=== PATIENT | male | born 1960 | race Caucasian/White ===

== ENCOUNTER 2016-10-11 11:46 | Inpatient (IN) | payer MEDICARE, BC, OTHER ==
--- NOTE | ~2016-10-11 | HP ---
Unit #: [id number] #: [id number] Patient: ELENA JOY [id number] [place] [address] [id number] MR#: [id number] NAME: ELENA JOY. ROOM: P106 Age: 56 Sex: M Admission Date: 10/11/2016 : 1960 Attending Physician: Gil Miles M.D. Admitting Physician: Gil Miles M.D. Primary Care Physician: Mayda Doctor Not In System HISTORY AND PHYSICAL HISTORY OF PRESENT ILLNESS Elena is a 56 year old admitted to [address] [place] [address] reporting auditory hallucinations telling him to kill himself. PAST MEDICAL HISTORY 1. Morbid obesity. 2. Diabetes mellitus. 3. Hypothyroidism. 4. Hyperlipidemia. PAST SURGICAL HISTORY Left leg, left shoulder. ALLERGIES No known drug allergies. SOCIAL HISTORY He denies cigarettes, alcohol and illicit drug use. FAMILY HISTORY Medically noncontributory. REVIEW OF SYSTEMS CONSTITUTIONAL: No fever or chills. HEENT: Denies any sore throat, ear pain or runny nose. CARDIOVASCULAR: Denies chest pain, irregular heart rhythm or palpitations. CHEST: Denies shortness of breath or cough. No hemoptysis. GASTROINTESTINAL: Denies nausea, vomiting, diarrhea or chronic constipation. ENDOCRINE: Denies history of increased thirst or urination. No recent significant weight loss or gain. GENITOURINARY: Denies dysuria, frequency, or hematuria. SKIN: Denies any rashes. HEMATOLOGIC: Denies history of increased bleeding or bruising. MUSCULOSKELETAL: Denies any hot, swollen joints. No generalized muscle pain. NEUROLOGIC: Denies problems with vision or speech. No frequent, severe headaches. No numbness, tingling or weakness in any extremities. Denies loss of bladder or bowel control. CURRENT MEDICATIONS 1. Glucophage 500 mg q.a.m. 2. Synthroid 0.1 mg daily. Unit #: [id number] #: [id number] Patient: ELENA JOY 3. Zyban SR 150 mg daily. 4. Zocor 20 mg q.h.s. 5. Desyrel 50 mg q.h.s. 6. Vistaril 25 mg q.h.s. 7. Risperdal 3 mg b.i.d. 8. Milk of Magnesia p.r.n. 9. Maalox p.r.n. 10. Tylenol p.r.n. PHYSICAL EXAMINATION GENERAL: Alert, well-nourished, in no apparent distress. VITAL SIGNS: Blood pressure 118/78, heart rate 100, respirations 16, temperature 98.6. WEIGHT: 204. HEIGHT: 5 feet 9 inches. SKIN: Warm and dry without rash or lesion. HEENT: Normocephalic. TMs not viewed. Oral and nasal passages clear. Conjunctivae clear. PERRLA. EOMs intact. NECK: Supple without lymphadenopathy or thyromegaly. HEART: Regular rate and rhythm without murmur. LUNGS: Clear. ABDOMEN: Soft, nontender. : Not done. EXTREMITIES: No evidence of cyanosis, clubbing or edema. Moves all without focal deficit. NEUROLOGICAL: Unable to complete extended examination. He does move all extremities. Hand cager operator is equal. Gait is normal. IMPRESSION Psychiatric admission. RECOMMENDATIONS PSYCHIATRIC: Per psychiatrist. MEDICAL: See no contraindication to participate in facility's activities. MEDICAL PROGNOSIS Good. MEDICAL CONDITION Stable. Dictated by... Екатерина Field P.A.-C. for Lupe Echeverria/tl TD: 10/11/2016 20:20 JOB #: [id number] Unit #: [id number] #: [id number] Patient: ELENA JOY HISTORY AND PHYSICAL Page 1 of 1 X Екатерина Field PA X HISTORY AND PHYSICAL
--- NOTE | ~2016-10-11 | PN ---
Unit #: [id number] #: [id number] Patient: ELENA OROSCO [id number] [facility] [address] [place] [address] [id number] I MR#: [id number] NAME: ELENA OROSCO. ROOM: P122 Age: 56 Sex: M Admission Date: 10/11/2016 : 1960 Attending Physician: Gil Miles M.D. Admitting Physician: Gil Miles M.D. Primary Care Physician: Mayda Doctor Not In System [facility] PROGRESS NOTES DATE October 15, 2016 DISCUSSION Mr. Orosco is a 56-year-old white male, with mood disorder, who was seen today and chart was reviewed and the case was discussed with the staff. He has been anxious, withdrawn, and rather seclusive to himself. Meanwhile, he has been cooperative with the treatment recommendations and he has been taking the medications. MENTAL STATUS EXAMINATION Middle-aged white male, who was casually dressed with fair personal hygiene and appears to be in no acute distress or discomfort. He was awake and alert on interaction with intact orientation. His mood is anxious with a congruent affect. His speech is slow and goal-directed. He denies any suicidal or homicidal ideations. His insight and judgment remain slightly impaired. TREATMENT PLAN 1. We will continue him on his current medications and treatment protocol, and will monitor his response to the medications, and make further adjustments as needed. 2. We will continue to followup. Dictated by... Lupe Graves/massiel TD: 10/16/2016 11:17 JOB #: [id number] Unit #: [id number] #: [id number] Patient: ELENA OROSCO PROGRESS NOTES Page 1 of 1 X Gil Miles MD PROGRESS NOTE
--- NOTE | ~2016-10-11 | PN ---
Unit #: [id number] #: [id number] Patient: ELENA OROSCO [id number] [facility] [address] [place] [address] [id number] I MR#: [id number] NAME: ELENA OROSCO. ROOM: P122 Age: 56 Sex: M Admission Date: 10/11/2016 : 1960 Attending Physician: Gil Miles M.D. Admitting Physician: Gil Miles M.D. Primary Care Physician: Mayda Doctor Not In System [facility] PROGRESS NOTES DATE OF SERVICE 10/20/2016 DISCUSSION Mr. Orosco is a 56-year-old white male who was seen today. Chart was reviewed and case was discussed with the staff. He has been anxious, withdrawn, and rather seclusive to himself. Meanwhile, he has been cooperative with the treatment recommendations and has been taking the medications and tolerating them fairly well with no reported side effects. MENTAL STATUS EXAMINATION Middle-aged white male who is casually dressed with fair personal hygiene, appears to be in no acute distress or discomfort. The patient was awake and alert on interaction with intact orientation. His mood is anxious with a congruent affect. He denies any suicidal or homicidal ideations, and also denies any auditory or visual hallucinations. His insight and judgment remain slightly impaired. TREATMENT PLAN 1. We will continue him on his current medications and treatment protocol. We will monitor his response and make further adjustments as needed. 2. We will continue to follow up. Dictated by... Gil Miles M.D. IAA/bzg TD: 10/21/2016 10:22 JOB #: [id number] Unit #: [id number] #: [id number] Patient: ELENA OROSCO [facility] PROGRESS NOTES Page 1 of 1 X Gil Miles MD PROGRESS NOTE
--- NOTE | ~2016-10-11 | DS ---
Unit #: [id number] #: [id number] Patient: ELENA OROSCO [id number] [place] [address] [id number] I MR#: [id number] NAME: ELENA OROSCO. ROOM: [facility] Age: 56 Sex: M Admission Date: 10/11/2016 : 1960 Discharge Date: 10/23/2016 Attending Physician: Gil Miles M.D. Primary Care Physician: Generic Doctor Not In System DISCHARGE SUMMARY IDENTIFYING DATA Mr. Orosco is a 56-year-old single disabled white male, who is a resident of [place], [place], and was stepped up to the inpatient unit from the intensive outpatient treatment program at [facility]. DISCHARGE DIAGNOSES Psychiatric: Chronic paranoid schizophrenia. Medical: Hypothyroidism, diabetes mellitus, dyslipidemia. Stressors: Mild psychosocial stressors. HISTORY OF PRESENT ILLNESS Please see initial psychiatric evaluation for details. PAST PSYCHIATRIC HISTORY Please see initial psychiatric evaluation for details. PAST MEDICAL HISTORY Please see initial psychiatric evaluation for details. HOSPITAL COURSE The patient was admitted to the adult psychiatric unit at [facility] and was oriented to the hospital environment. Routine p.r.n. medications were initiated, and he was started back on his home medications and medications were adjusted and he was closely monitored. He was taking the medications regularly and was tolerating them fairly well and was able to show a decent and therapeutic response. However, he was also considered to be a candidate for long-acting injectable antipsychotic due to his history of poor compliance with medication leading to persistent psychosis and after ruling out hypersensitivity to the molecule of Risperdal, Invega Sustenna was given. He was able to receive both the loading doses while on the unit; followed by which, it was decided that he will be discharged home and will continue treatment on an outpatient basis. DISCHARGE MEDICATIONS Invega Sustenna intramuscular every 30 days. DISCHARGE CONDITION Stable. PROGNOSIS Fair. Unit #: [id number] #: [id number] Patient: ELENA OROSCO Dictated by... Gil Miles M.D. IAA/modl TD: 10/24/2016 01:51 JOB #: [id number] DISCHARGE SUMMARY Page 1 of 1 X Gil Miles MD DISCHARGE SUMMARY
--- NOTE | ~2016-10-11 | PN ---
Unit #: [id number] #: [id number] Patient: ELENA OROSCO [id number] [facility] [address] [place] [address] [id number] I MR#: [id number] NAME: ELENA OROSCO. ROOM: P122 Age: 56 Sex: M Admission Date: 10/11/2016 : 1960 Attending Physician: Gil Miles M.D. Admitting Physician: Gil Miles M.D. Primary Care Physician: Mayda Doctor Not In System [facility] PROGRESS NOTES DATE 10/16/2016 DISCUSSION Mr. Orosco is a 56-year-old white male with mood disorder and psychosis who was ____ today and case was discussed with the staff. He has been anxious, withdrawn, seclusive to himself with persistent paranoia and hallucinations. Meanwhile, he has been taking medications and tolerating them fairly well with no reported side effects. MENTAL STATUS EXAMINATION Middle-aged white male who was casually dressed with fair personal hygiene and appears to be in no acute distress or discomfort. He was awake and alert with impaired attention and concentration. His mood was anxious with congruent affect. His speech is slow and restricted in content. His thought processes were disorganized with some looseness of associations and flight of ideas. His insight and judgement remains significantly impaired. TREATMENT PLAN 1. Will continue in his current medications and treatment protocol. Will monitor his response to the medications and make further adjustments as needed. 2. Will continue to follow up. Dictated by... Lupe Graves/tl TD: 10/16/2016 20:25 JOB #: [id number] Unit #: [id number] #: [id number] Patient: ELENA OROSCO [facility] PROGRESS NOTES Page 1 of 1 X Gil Miles MD PROGRESS NOTE
--- NOTE | ~2016-10-11 | PN ---
Unit #: [id number] #: [id number] Patient: ELENA OROSCO [id number] [facility] [address] [place] [address] [id number] I MR#: [id number] NAME: ELENA OROSCO. ROOM: P122 Age: 56 Sex: M Admission Date: 10/11/2016 : 1960 Attending Physician: Gil Miles M.D. Admitting Physician: Gil Miles M.D. Primary Care Physician: Mayda Doctor Not In System [facility] PROGRESS NOTES DATE October 22, 2016 DISCUSSION Mr. Orosco is a 56-year-old white male, who was seen today and chart was reviewed and the case was discussed with the staff. He has been anxious, withdrawn, but has not shown any agitation, irritability, and has been cooperative with the treatment recommendations, and he has been taking the medications and tolerating them fairly well with no reported side effects. MENTAL STATUS EXAMINATION Middle-aged white male, who was casually dressed with fair personal hygiene and appears to be in no acute distress or discomfort. He was awake and alert on interaction with intact orientation. His mood was anxious with a congruent affect. He denies any suicidal or homicidal ideations. His insight and judgment remain slightly impaired. TREATMENT PLAN 1. We will continue him on his current medications and treatment protocol, and will monitor his response, and make further adjustments as needed. 2. We will continue to followup. Dictated by... Lupe Graves/massiel TD: 10/23/2016 08:27 JOB #: [id number] Unit #: [id number] #: [id number] Patient: ELENA OROSCO [facility] PROGRESS NOTES Page 1 of 1 X Gil Miles MD X PROGRESS NOTE
--- NOTE | ~2016-10-11 | PN ---
Unit #: [id number] #: [id number] Patient: ELENA OROSCO [id number] [facility] [address] [place] [address] [id number] I MR#: [id number] NAME: ELENA OROSCO. ROOM: P122 Age: 56 Sex: M Admission Date: 10/11/2016 : 1960 Attending Physician: Gil Miles M.D. Admitting Physician: Gil Miles M.D. Primary Care Physician: Mayda Doctor Not In System [facility] PROGRESS NOTES DATE October 13, 2016 DISCUSSION Mr. Orosco is a 56-year-old white male, who was seen today and chart was reviewed and the case was discussed with the staff. He has been anxious, withdrawn, and reports that since he has been here in the hospital he has been feeling worse; however, he has been taking the medications and tolerating them fairly well with no reported side effects. MENTAL STATUS EXAMINATION Middle-aged white male, who was casually dressed with fair personal hygiene and appears to be in no acute distress or discomfort. He was awake and alert with intact orientation. His mood is anxious with a congruent affect. He denies any suicidal or homicidal ideations. His insight and judgment remain slightly impaired. TREATMENT PLAN 1. We will continue him on his current medications and treatment protocol, and will monitor his response to the medications, and make further adjustments as needed. 2. We will continue to followup. Dictated by... Lupe Graves/massiel TD: 10/14/2016 07:40 JOB #: [id number] Unit #: [id number] #: [id number] Patient: ELENA OROSCO [facility] PROGRESS NOT[facility] Page 1 of 1 X Gil Miles MD PROGRESS NOTE
--- NOTE | ~2016-10-11 | PN ---
Unit #: [id number] #: [id number] Patient: ELENA OROSCO [id number] [facility] [address] [place] [address] [id number] MR#: [id number] NAME: ELENA OROSCO. ROOM: P122 Age: 56 Sex: M Admission Date: 10/11/2016 : 1960 Attending Physician: Gil Miles M.D. Admitting Physician: Gil Miles M.D. Primary Care Physician: Mayda Doctor Not In System [facility] PROGRESS NOTES DATE 10/19/2016 DISCUSSION Mr. Orosco is a 56-year-old, white male who was seen today and chart was reviewed and case was discussed with the staff. He has been anxious, withdrawn and rather seclusive to himself. Meanwhile, he has been cooperative with treatment recommendations. He has been taking medications and tolerating them fairly well with no reported side effects. MENTAL STATUS EXAM Middle-aged white male who was casually dressed with fair personal hygiene, appears to be in no acute distress or discomfort. He was awake and alert on interaction with intact orientation. His mood was anxious with congruent affect. His speech was slow and restricted in content. His thought processes were disorganized with some looseness of associations. His insight and judgement remains slightly impaired. TREATMENT PLAN 1. We will continue him on his current medications and treatment protocol. We will monitor his response to the medication and make further adjustments as needed. 2. We will continue to follow up. Dictated by... Lupe Graves/nori TD: 10/20/2016 03:07 JOB #: [id number] Unit #: [id number] #: [id number] Patient: ELENA OROSCO [facility] PROGRESS NOT[facility] Page 1 of 1 X Gil Miles MD PROGRESS NOTE
--- NOTE | ~2016-10-11 | PN ---
Unit #: [id number] #: [id number] Patient: ELENA OROSCO [id number] [facility] [address] [place] [address] [id number] I MR#: [id number] NAME: ELENA OROSCO. ROOM: P122 Age: 56 Sex: M Admission Date: 10/11/2016 : 1960 Attending Physician: Gil Miles M.D. Admitting Physician: Gil Miles M.D. Primary Care Physician: Mayda Doctor Not In System [facility] PROGRESS NOTES DATE OF SERVICE: 10/21/2016 SUBJECTIVE Mr. Orosco is a 56-year-old white male who was seen today and chart was reviewed and case was discussed with the staff. He has been anxious and withdrawn, though has not shown any agitation or irritability, and has been cooperative with treatment recommendations as he has been taking the medications and tolerating them fairly well with no reported side effects. MENTAL STATUS EXAMINATION Middle-aged white male who was casually dressed with fair personal hygiene, appears to be in no acute distress or discomfort. He was awake and alert with impaired attention and concentration. His mood was anxious with a congruent affect. He denies any suicidal or homicidal ideations. His insight and judgment remain slightly impaired. TREATMENT PLAN 1. We will continue him on his current medications and treatment protocol. We will monitor his response and make further adjustments as needed. 2. We will continue to follow up. Dictated by... Lupe Graves/scott TD: 10/21/2016 08:48 JOB #: [id number] [facility] PROGRESS NOTES Page 1 of 1 X Gil Miles MD PROGRESS NOTE
--- NOTE | ~2016-10-11 | PN ---
Unit #: [id number] #: [id number] Patient: ELENA OROSCO [id number] [facility] [address] [place] [address] [id number] I MR#: [id number] NAME: ELENA OROSCO. ROOM: P122 Age: 56 Sex: M Admission Date: 10/11/2016 : 1960 Attending Physician: Gil Miles M.D. Admitting Physician: Gil Miles M.D. Primary Care Physician: Mayda Doctor Not In System [facility] PROGRESS NOTES DATE October 18, 2016 DISCUSSION Mr. Orosco is a 56-year-old white male, who was seen today and chart was reviewed and the case was discussed with the staff. He has been anxious, withdrawn, and rather seclusive to himself. Meanwhile, he has been cooperative with the treatment recommendations and he has been taking the medications and tolerating them fairly well with no reported side effects. MENTAL STATUS EXAMINATION Middle-aged white male, who was casually dressed with fair personal hygiene and appears to be in no acute distress or discomfort. He was awake and alert with intact orientation. His mood is anxious with a congruent affect. He denies any suicidal or homicidal ideations. His insight and judgment remain slightly impaired. TREATMENT PLAN 1. We will continue him on his current medications and treatment protocol, and will monitor his response to the medications, and make further adjustments as needed. 2. We will continue to followup. Dictated by... Lupe Graves/massiel TD: 10/18/2016 10:24 JOB #: [id number] Unit #: [id number] #: [id number] Patient: ELENA OROSCO [facility] PROGRESS NOT[facility] Page 1 of 1 X Gil Miles MD X PROGRESS NOTE
--- NOTE | ~2016-10-11 | PN ---
Unit #: [id number] #: [id number] Patient: ELENA OROSCO [id number] [facility] [address] [place] [address] [id number] MR#: [id number] NAME: ELENA OROSCO. ROOM: P122 Age: 56 Sex: M Admission Date: 10/11/2016 : 1960 Attending Physician: Gil Miles M.D. Admitting Physician: Gil Miles M.D. Primary Care Physician: Mayda Doctor Not In System [facility] PROGRESS NOTES DATE October 14, 2016 DISCUSSION Mr. Orosco is a 56-year-old white male, who was seen today and chart was reviewed and the case was discussed with the staff. He has been anxious, withdrawn, and rather seclusive to himself. Meanwhile, he has been cooperative with the treatment recommendations and he has been taking the medications and tolerating them fairly well with no reported side effects. MENTAL STATUS EXAMINATION Middle-aged white male, who was casually dressed with fair personal hygiene and appears to be in no acute distress or discomfort. He was awake and alert with intact orientation. His mood is anxious with a congruent affect. He denies any suicidal or homicidal ideations but he does report auditory hallucinations. His insight and judgment remain significantly impaired. TREATMENT PLAN 1. We will continue him on his current medications and treatment protocol, and will monitor his response to the medications, and make further adjustments as needed. 2. We will continue to followup. Dictated by... Lupe Graves/massiel TD: 10/15/2016 09:35 JOB #: [id number] Unit #: [id number] #: [id number] Patient: ELENA OROSCO [facility] PROGRESS NOT[facility] Page 1 of 1 X Gil Miles MD PROGRESS NOTE
--- NOTE | ~2016-10-11 | PA ---
Unit #: [id number]: [id number] Patient: [facility] OROSCO [id number] [facility] [address] [place] [address] [id number] MR#: [id number] NAME: ELENA OROSCO. ROOM: [facility] Age: 56 Sex: M Admission Date: 10/11/2016 : 1960 Date of Assessment: 10/11/2016 Attending Physician: Gil Miles M.D. Admitting Physician: Gil Miles M.D. Primary Care Physician: Generic Doctor Not In System PSYCHIATRIC ASSESSMENT DATE OF SERVICE 10/11/2016. IDENTIFYING DATA AND HISTORY OF PRESENT ILLNESS Mr. Orosco is a 56-year-old single disabled white male, who was stepped up to the inpatient unit [facility] and was reporting some increasing depression, acute psychosis, and feelings of hopelessness and suicidal ideation, and his therapist was really concerned as he was failing the outpatient treatment program and was having significant paranoia and delusional behavior, feeling that the people are after him and that he has been seeing people in the bushes and reports paranoia surrounding the thought that black men are hiding in the bushes with a gun to kill him and reports poor appetite and that he feels he would rather from malnutrition and that it would look like a natural and was seen to be unkempt, disheveled, with disorganized thought processes and was a significant danger to himself. He apparently has been on Risperdal, but has been forgetting to take his medication because he is not eating as part of his starving attempt and then he feels that he should not take pills on empty stomach. He also has been having very bizarre behavior with disorganized thought and speech as he has been asking me different questions and told me that he approached a female outside and asked her if she wants to be his girlfriend and that she just laughed and that she did not give him an answer and wanted me to tell him what that meant. He also then asked me a question as to when it is okay to leave the toilet seat up after using the bathroom, and as such, was seen to be exhibiting some significant cognitive impairment for his age of 56 and it appears that he has some history of developmental delays and learning disabilities in the past; however, currently, he has been going through acute psychosis and was seen to be a significant danger to himself and others, and as such, a recommendation for inpatient level of care for safety and stabilization was made. SUBSTANCE ABUSE HISTORY The patient denies any history of alcohol or drug abuse. PAST PSYCHIATRIC HISTORY The patient has had a history of psychiatric treatment at [facility] and has been diagnosed and treated for schizophrenia, and review of the medical records indicate that he has been on Risperdal, but has been noncompliant with the medications and as such, has been decompensating. Unit #: [id number] #: [id number] Patient: ELENA OROSCO PAST MEDICAL HISTORY The patient's medical history is significant for hypothyroidism, diabetes mellitus, and dyslipidemia. ALLERGIES No known medication allergies. PERSONAL AND SOCIAL HISTORY A 56-year-old white male, who reports he is single, disabled, and lives alone and has poor social support system. MENTAL STATUS EXAMINATION Middle-aged white male, who was casually dressed with fair personal hygiene and appears to be in no acute distress or discomfort. He was awake and alert with impaired attention and concentration. His mood was anxious with a congruent affect. His speech was slow and restricted in content. His thought processes were disorganized with some looseness of associations and flight of ideas, paranoid ideations, delusional behavior, as well as auditory and visual hallucinations and suicidal ideations. His insight and judgment remain significantly impaired. DIAGNOSTIC IMPRESSION Psychiatric: Chronic paranoid schizophrenia. Medical: Hypothyroidism, diabetes mellitus, and dyslipidemia. Stressors: Moderate psychosocial stressors. TREATMENT PLAN 1. The patient has presented with a history of mood disorder and psychosis and has been decompensating and will need inpatient hospitalization for safety and stabilization. We will start him back on his home medications and we will adjust the medications and monitor response. 2. Supportive therapy was provided to the patient. ESTIMATED LENGTH OF STAY 5 to 7 days. ABILITY TO HELP SELF Limited. WILLINGNESS TO HELP SELF The patient appears to be willing to help self. STRENGTHS 1. Communicative. 2. Cooperative. PROBLEMS 1. Chronic dysphoric symptoms. 2. Poor social support system. DISCHARGE CRITERIA This will be contingent upon the patient's ability to show resolution of his depression and psychosis and his ability to stay safe to himself, particularly after discharge from the hospital. Dictated by... Unit #: [id number] #: [id number] Patient: ELENA OROSCO M.D. IAA/scott TD: 10/12/2016 18:55 JOB #: [id number] PSYCHIATRIC ASSESSMENT Page 1 of 1 X Gil Miles MD PSYCHIATRIC ASSESSMENT
--- NOTE | ~2016-10-11 | PN ---
Unit #: [id number] #: [id number] Patient: ELENA OROSCO [id number] [facility] [address] [place] [address] [id number] MR#: [id number] NAME: ELENA OROSCO. ROOM: [facility] Age: 56 Sex: M Admission Date: 10/11/2016 : 1960 Attending Physician: Gil Miles M.D. Admitting Physician: Gil Miles M.D. Primary Care Physician: Mayda Doctor Not In System [facility] PROGRESS NOTES DATE 10/12/2016 DISCUSSION Mr. Orosco is a 56-year-old white male who was seen today and chart was reviewed and case was discussed with the staff. He was pacing the hallways in paper gown and seen to be disorganized with bizarre behavior and looseness of associations and unable to carry on meaningful conversation and has been reporting some persistent hallucinations and staff report he has been exhibiting bizarre speech and behavior. However, he has not shown any agitation or aggression. MENTAL STATUS EXAMINATION Middle-aged white male who was casually dressed with marginal personal hygiene and appears to be in no acute distress or discomfort. He was awake and alert with impaired attention and concentration. His mood was anxious with congruent affect. His speech is slow and tangential. His thought processes were disorganized with some looseness of associations and flight of ideas, paranoid ideations auditory and visual hallucinations. His insight and judgement remains significantly impaired. TREATMENT PLAN 1. Will continue his current medications and will recommend initiation long-acting injectable antipsychotic. 2. Will continue to follow up. Dictated by... Lupe Graves/tl TD: 10/12/2016 16:44 JOB #: [id number] Unit #: [id number] #: [id number] Patient: ELENA OROSCO [facility] PROGRESS NOTES Page 1 of 1 X Gil Miles MD PROGRESS NOTE
[2016-10-12 12:30] LABS: ALBUMIN SERUM 4.3 g/dL (3.5-5.0); BUN/CREATININE RATIO 15.55; CALCIUM SERUM 9.2 mg/dL (8.4-10.2); CREATININE SERUM 0.9 mg/dL (0.6-1.4); GLOM FILT RATE Estimated 94.5 mL/min (>60); POTASSIUM 3.9 mmol/L (3.5-5.1); PROTEIN TOTAL SERUM 6.6 g/dL (6.0-8.3)
[2016-10-13 11:07] LABS: URINE APPEARANCE CLEAR; URINE BILIRUBIN NEG (NEG); URINE BLOOD NEG (NEG); URINE COLOR YELLOW; URINE GLUCOSE NEG (NEG); URINE KETONE NEG (NEG); URINE LEUKOCYTE ESTERASE NEG (NEG); URINE NITRATE NEG (NEG); URINE PH 5.5 (5-8); URINE PROTEIN NEG (NEG); URINE SPECIFIC GRAVITY 1.012 (1.003-1.035)
[2016-10-13 12:42] LABS: AMPHETAMINE NEG (NEG); BARBITURATES NEG (NEG); BENZODIAZEPINES NEG (NEG); COCAINE NEG (NEG); MARIJUANA NEG (NEG); OPIATES NEG (NEG); TRICYCLIC ANTIDEPRESSANTS NEG (NEG); U METHADONE NEG (NEG)
[2016-10-14 12:31] LABS: BASOPHIL% 0.7 % (0-2.5); EOSINOPHIL# 0.1 X10e3 (0-0.7); EOSINOPHIL% 2.1 % (0.0-7.0); HEMATOCRIT 50.3 % (38.0-50.0); HEMOGLOBIN 16.2 gm/dL (13.0-16.0); LYMPHOCYTE# 1.1 X10e3 (1.0-3.5); LYMPHOCYTE% 23.1 % (17.0-45.0); MEAN CELL VOLUME 89.9 FL (83-96); MEAN CORPUSCULAR HGB CONC 32.3 g/dL (30-36); MEAN PLATELET VOLUME 8.8 FL (6.5-11.5); MONOCYTE# 0.4 X10e3 (0-1.0); MONOCYTE% 7.5 % (3.0-12.0); NEUTROPHIL# 3.2 X10e3 (1.5-7.1); NEUTROPHIL% 66.6 % (40-75); PLATELET COUNT 100 X10e3 (140-420); RED CELL DISTRIBUTION WIDTH 13.6 % (11.0-15.5); WHITE BLOOD COUNT 4.7 X10e3 (4.0-10.5)
[2016-10-14 12:34] LABS: DIFF IND NO
== END 2016-10-23 14:50 | DRG 885 ==
LOC: P1S 12:12 → P2L 12:12 → P1S 12:46 → POF 10-13 18:02 → P1S 10-13 18:04
PROVIDERS: Psychiatry & Neurology Psychiatry
DX: F20.0 Paranoid schizophrenia (principal); E11.9 Type 2 diabetes mellitus without complications; R45.851 Suicidal ideations; E03.9 Hypothyroidism, unspecified; E78.5 Hyperlipidemia, unspecified
CPT/HCPCS: 80053; 80307; 81003; 85025